=== PATIENT | female | born 1970 | race African-American/Black ===

== ENCOUNTER 2018-02-04 01:03 | Emergency (ER) | payer MEDICAID, OTHER ==
[~2018-02-04] VITALS: Ht 167.6 cm; Wt 112.0 kg
[2018-02-04 01:57] VITALS: BP 147/98
[2018-02-04] MEDS ORDERED: FAMOTIDINE 20MG/2ML VIAL IV ONE (02:00)
[2018-02-04] MEDS ORDERED: DIPHENHYDRAMINE 50MG/ML VIAL IV ONE (02:00)
[2018-02-04] MEDS ORDERED: METHYLPREDNISOLONE SOD SUCC 125 MG/2 ML VIAL IV ONE (02:00)
== END 2018-02-04 03:00 | disposition home or self-care (01) ==
LOC: ER 01:03
DX: T78.1XXA Other adverse food reactions, not elsewhere classified, initial encounter (principal); J45.909 Unspecified asthma, uncomplicated; E11.9 Type 2 diabetes mellitus without complications; I10 Essential (primary) hypertension; X58.XXXA Exposure to other specified factors, initial encounter
CPT/HCPCS: 96374; 96375; 99284; J1200; J2930; J3490

== ENCOUNTER 2019-02-12 20:45 | Emergency (ER) | payer MEDICAID ==
[~2019-02-12] VITALS: Ht 167.6 cm; Wt 103.0 kg
[2019-02-12 20:57] VITALS: BP 139/86
[2019-02-12] MEDS ORDERED: FAMOTIDINE 20MG TABLET PO NR (21:45)
[2019-02-12] MEDS ORDERED: DIPHENHYDRAMINE 50MG/ML VIAL IM NR (21:45)
[2019-02-12] MEDS ORDERED: METHYLPREDNISOLONE SOD SUCC 125 MG/2 ML VIAL IM NR (21:45)
== END 2019-02-12 22:04 | disposition home or self-care (01) ==
LOC: ER 20:45
DX: T78.40XA Allergy, unspecified, initial encounter (principal); E11.9 Type 2 diabetes mellitus without complications; I10 Essential (primary) hypertension; J45.909 Unspecified asthma, uncomplicated; Z98.890 Other specified postprocedural states; X58.XXXA Exposure to other specified factors, initial encounter
CPT/HCPCS: 81025; 96372; 99283; J1200; J2930; Z7610

== ENCOUNTER 2019-02-25 04:02 | Emergency (ER) | payer MEDICAID ==
[~2019-02-25] VITALS: Ht 167.6 cm; Wt 100.0 kg
[2019-02-25] MEDS ORDERED: METHYLPREDNISOLONE SOD SUCC 125 MG/2 ML VIAL IM ONE (05:00)
[2019-02-25] MEDS ORDERED: FAMOTIDINE 20MG TABLET PO ONE (05:00)
[2019-02-25 07:09] VITALS: BP 128/80
== END 2019-02-25 07:10 | disposition home or self-care (01) ==
LOC: ER 04:02
DX: T78.40XA Allergy, unspecified, initial encounter (principal); X58.XXXA Exposure to other specified factors, initial encounter; L50.9 Urticaria, unspecified; J45.909 Unspecified asthma, uncomplicated; E11.9 Type 2 diabetes mellitus without complications; I10 Essential (primary) hypertension
CPT/HCPCS: 96372; 99283; J2930

== ENCOUNTER 2019-03-04 00:11 | Emergency (ER) | payer MEDICAID ==
[~2019-03-04] VITALS: Ht 162.6 cm; Wt 101.0 kg
[2019-03-04] MEDS ORDERED: METHYLPREDNISOLONE SOD SUCC 125 MG/2 ML VIAL IM ONE (02:00)
[2019-03-04] MEDS ORDERED: FAMOTIDINE 20MG TABLET PO ONE (02:00)
[2019-03-04 07:07] VITALS: BP 121/64
== END 2019-03-04 07:37 | disposition home or self-care (01) ==
LOC: ER 00:11
DX: K13.0 Diseases of lips (principal); K05.10 Chronic gingivitis, plaque induced; E11.9 Type 2 diabetes mellitus without complications; I10 Essential (primary) hypertension; T78.40XA Allergy, unspecified, initial encounter; X58.XXXA Exposure to other specified factors, initial encounter
CPT/HCPCS: 81025; 96372; 99283; J2930; Z7610

== ENCOUNTER 2019-07-22 11:01 | Emergency (ER) | payer MEDICAID ==
[~2019-07-22] VITALS: Ht 162.6 cm; Wt 108.0 kg
[2019-07-22 12:42] LABS: BASOPHILS % 0.5 % (0.0-2.0); EOSINOPHILS % 0.6 % (0.0-5.0); HEMATOCRIT. 37.7 % (36.0-48.0); HEMOGLOBIN. 12.4 g/dL (12.0-16.0); MEAN CORPUSCULAR HEMOGLOBIN 26.3 pg (28.0-32.0); MEAN CORPUSCULAR VOLUME 79.8 fL (81.0-99.0); MEAN PLATELET VOLUME 7.2 fl (7.4-10.4); MONOCYTES % 9.2 % (2.0-8.0); NEUTROPHILS % 63.7 % (40.0-76.0); PLATELET 332 x1000/uL (130-400); RED BLOOD CELL COUNT 4.72 mill/uL (4.2-5.4); RED CELL DISTRIBUTION WIDTH 16.4 % (11.6-14.6)
[2019-07-22 12:49] LABS: CHLORIDE 100 mEq/L (98-107)
[2019-07-22 12:54] LABS: HCG SCREEN NEGATIVE
[2019-07-22 12:58] LABS: *AMPHETAMINES SCREEN URINE NEGATIVE (NEGATIVE); *BARBITURATES SCREEN URINE NEGATIVE (NEGATIVE); *BENZODIAZEPINES SCREEN URINE NEGATIVE (NEGATIVE); *COCAINE SCREEN URINE NEGATIVE (NEGATIVE)
[2019-07-22 12:59] LABS: CANNABINOID URINE SCREEN NEGATIVE (NEGATIVE); CLARITY URINE CLEAR (CLEAR); COLOR URINE YELLOW (YELLOW); KETONES URINE NEGATIVE (NEGATIVE); LEUKOCYTE ESTERASE URINE NEGATIVE (NEGATIVE); METHADONE URINE SCREEN NEGATIVE (NEGATIVE); NITRITE URINE NEGATIVE (NEGATIVE); OCCULT BLOOD URINE NEGATIVE (NEGATIVE); OPIATES URINE SCREEN NEGATIVE (NEGATIVE); PHENCYCLIDINE URINE SCREEN NEGATIVE (NEGATIVE); PROTEIN URINE NEGATIVE (NEGATIVE); SPECIFIC GRAVITY URINE 1.003 (1.005-1.030); UROBILINOGEN URINE 0.2 E.U./dL (0.2-1.0)
[2019-07-22 15:36] VITALS: BP 140/83
== END 2019-07-22 15:42 | disposition home or self-care (01) ==
LOC: ER 11:10
DX: N39.0 Urinary tract infection, site not specified (principal); R42 Dizziness and giddiness; R11.0 Nausea; E11.9 Type 2 diabetes mellitus without complications; I10 Essential (primary) hypertension; R94.31 Abnormal electrocardiogram [ECG] [EKG]; Z98.890 Other specified postprocedural states
CPT/HCPCS: 36415; 71045; 80053; 80305; 81003; 81025; 82962; 83880; 84484; 84703; 85025; 93005; 99285

== ENCOUNTER 2019-10-14 17:33 | Emergency (ER) | payer MEDICAID ==
[~2019-10-14] VITALS: Ht 162.6 cm; Wt 100.0 kg
[2019-10-14 18:00] VITALS: BP 166/94
[2019-10-14] MEDS ORDERED: ACETAMINOPHEN 325MG TABLET PO ONE (19:00)
== END 2019-10-14 20:11 | disposition home or self-care (01) ==
LOC: ER 17:33
DX: M75.31 Calcific tendinitis of right shoulder (principal); E11.9 Type 2 diabetes mellitus without complications; I10 Essential (primary) hypertension
CPT/HCPCS: 73060; 99283

== ENCOUNTER 2023-08-01 12:56 | Emergency (ER) | payer MEDICAID ==
[~2023-08-01] VITALS: Ht 162.6 cm; Wt 110.0 kg
[2023-08-01 13:07] VITALS: TEMP 97.6; O2SAT 100
[2023-08-01 14:15] VITALS: BP 122/84; PULSE 100; RESP 16
[2023-08-01] MEDS: KETOROLAC 60MG/2ML VIAL IM ONE (14:15)
[2023-08-01] MEDS ORDERED: IBUP-2029 MT (15:17)
== END 2023-08-01 18:05 | disposition home or self-care (01) ==
LOC: ER 12:56
DX: M25.532 Pain in left wrist (principal); E11.9 Type 2 diabetes mellitus without complications; I10 Essential (primary) hypertension
CPT/HCPCS: 99283; 73110; 96372; J1885